=== PATIENT | female | born 1970 | race Caucasian/White ===

== ENCOUNTER → 2016-08-21 | Outpatient (CLI) | payer OTHER ==
--- NOTE | 2016-08-21 10:14 | REP ---
CHEST, TWO VIEWS: COMPARISON: 07/11/2011. There is no evidence of acute infiltrate. No pleural effusion is seen. The heart is normal in size. The mediastinal silhouette is unremarkable. The visualized osseous structures are intact. There are mild degenerative changes of the spine. IMPRESSION: No acute pulmonary disease. Signed by Imtiaz Lind MD 08/21/2016 01:56 P
== END ==
LOC: M WUC 09:37
PROVIDERS: ATTEND Physician Assistant
DX: R05 Cough (principal); R50.9 Fever, unspecified

== ENCOUNTER → 2021-12-09 | Outpatient (REF) | payer OTHER ==
[2021-12-09 18:16] LABS: BASO # 0.1 10^3/uL (0.0-0.2); BASO % 0.8 % (0.0-1.0); EOS # 0.1 10^3/uL (0.0-0.5); EOS % 1.6 % (0.0-3.0); HEMATOCRIT 42.9 % (36.0-47.0); HEMOGLOBIN 13.4 g/dl (12.0-15.5); LYMPH % 33.1 % (24.0-44.0); MEAN CORPUSCULAR HEMOGLOBIN 28.7 pg (27.0-33.0); MEAN CORPUSCULAR HGB CONC 31.2 g/dl (32.0-36.5); MEAN CORPUSCULAR VOLUME 91.9 fl (80.0-96.0); MONO # 0.4 10^3/uL (0.0-0.8); MONO % 6.4 % (2.0-8.0); NEUTROPHILS # 3.5 10^3/uL (1.5-8.5); NEUTROPHILS % 57.8 % (36.0-66.0); PLATELET COUNT, AUTOMATED 273 10^3/uL (150-450); RED BLOOD COUNT 4.67 10^6/uL (4.00-5.40); WHITE BLOOD COUNT 6.1 10^3/uL (4.0-10.0)
[2021-12-09 18:20] LABS: ALBUMIN 4.2 GM/DL (3.2-5.2); ALT/SGPT 21 U/L (12-78); APPEARANCE, URINE CLEAR (CLEAR); BACTERIA, URINE AUTO NEGATIVE (NEGATIVE); BILIRUBIN, URINE AUTO NEGATIVE (NEGATIVE); BILIRUBIN,TOTAL 0.5 MG/DL (0.2-1.0); BLOOD UREA NITROGEN 9 MG/DL (7-18); BLOOD, URINE BLOOD 1+ (NEGATIVE); C REACTIVE PROTEIN QUANTITATIV 0.32 MG/DL (0.00-0.30); CALCIUM LEVEL 9.5 MG/DL (8.5-10.1); CARBON DIOXIDE LEVEL 30 MEQ/L (21-32); CHLORIDE LEVEL 106 MEQ/L (98-107); COLOR, URINE YELLOW (YELLOW); COMPLEMENT C3 127 MG/DL (90-180); COMPLEMENT C4 32 MG/DL (10-40); GLOMERULAR FILTRATION RATE > 60.0 (>51); GLUCOSE, FASTING 82 MG/DL (70-100); GLUCOSE, URINE (UA) AUTO NEGATIVE (NEGATIVE); KETONE, URINE AUTO NEGATIVE (NEGATIVE); LEUKOCYTE ESTERASE, URINE AUTO TRACE (NEGATIVE); MUCUS, URINE SMALL (NEGATIVE); NITRITE, URINE AUTO NEGATIVE (NEGATIVE); POTASSIUM SERUM 3.8 MEQ/L (3.5-5.1); PROTEIN, URINE AUTO NEGATIVE (NEGATIVE); RBC, URINE AUTO 0 /HPF (0-3); SODIUM LEVEL 141 MEQ/L (136-145); SQUAMOUS EPITHELIAL CELL UR AU 0 /HPF (0-6); TOTAL PROTEIN 7.2 GM/DL (6.4-8.2); UROBILINOGEN, URINE AUTO 0.2 mg/dL (0.0-2.0); WBC, URINE AUTO 0 /HPF (0-3)
[2021-12-09 18:34] LABS: CREATININE,RANDOM URINE 62.2 MG/DL; TOTAL PROTEIN,RANDOM URINE 11.1 MG/DL (0.0-12.0)
[2021-12-09 18:59] LABS: ERYTHROCYTE SEDIMENTATION RATE 17 mm/hr (0-30)
== END ==
LOC: M SFHCRHEU 14:26
PROVIDERS: ATTEND Internal Medicine Rheumatology
DX: R76.8 Other specified abnormal immunological findings in serum (principal); M35.3 Polymyalgia rheumatica; R53.1 Weakness; R20.0 Anesthesia of skin; R53.83 Other fatigue; H53.9 Unspecified visual disturbance; R41.3 Other amnesia; R26.89 Other abnormalities of gait and mobility; M62.838 Other muscle spasm; G47.09 Other insomnia; R13.10 Dysphagia, unspecified; R19.8 Other specified symptoms and signs involving the digestive system and abdomen; R39.89 Other symptoms and signs involving the genitourinary system

== ENCOUNTER → 2022-02-11 | Outpatient (CLI) | payer OTHER ==
[~2022-02-11] MED LIST: PROHANCE 279.3MG/ML 15ML VIAL ONE
== END ==
LOC: M PLAIMG 13:11
PROVIDERS: ATTEND Psychiatry & Neurology Neurology
DX: R41.89 Other symptoms and signs involving cognitive functions and awareness (principal)

== ENCOUNTER → 2022-05-17 | Outpatient (CLI) | payer OTHER | LOC: M RAD 07:35 | PROVIDERS: ATTEND Nurse Practitioner Adult Health | DX: M50.221 Other cervical disc displacement at C4-C5 level (principal); M50.222 Other cervical disc displacement at C5-C6 level; M48.02 Spinal stenosis, cervical region; M79.12 Myalgia of auxiliary muscles, head and neck; M54.12 Radiculopathy, cervical region ==

== ENCOUNTER → 2022-08-05 | Outpatient (CLI) | payer OTHER | LOC: M PLAIMG 12:34 | PROVIDERS: ATTEND Nurse Practitioner Family | DX: R91.1 Solitary pulmonary nodule (principal) ==

== ENCOUNTER → 2025-03-26 | Outpatient (CLI) | payer OTHER | LOC: M WUC 14:32 | PROVIDERS: ATTEND Nurse Practitioner Family | DX: J20.9 Acute bronchitis, unspecified (principal); R91.8 Other nonspecific abnormal finding of lung field ==